=== PATIENT | female | born 2000 | race Hispanic/Latino ===

== ENCOUNTER 2021-03-14 19:38 | Day surgery (SDC) | payer OTHER ==
[2021-03-14 20:04] VITALS: BMI 35.1
[2021-03-14] MEDS ORDERED: hydrALAZINE 20 MG/ML VIAL SLOW IVP PRN (20:41)
[2021-03-14] MEDS ORDERED: Ondansetron PF 4 MG/2 ML Vial IVP PRN (20:47)
[2021-03-14] MEDS ORDERED: Ondansetron PF 4 MG/2 ML Vial ONE (20:56)
[2021-03-14] MEDS ORDERED: Lidocaine 2% Viscous Solution 10 ML, Aluminum & Magnesium Hydroxide 30 ML SSW SCH (21:00)
[2021-03-14] MEDS ORDERED: Lactated Ringer's 1,000 ML IV SCH (21:00)
[2021-03-14 21:23] LABS: #Basophils 0.1 10x3/uL (0.0-0.2); #Eosinphils 0.1 10x3/uL (0.0-0.5); #Monocytes 0.6 10x3/uL (0.0-1.1); #Neutrophils 6.7 10x3/uL (1.5-8.4); %Basophils 0.6 % (0.0-2.0); %Eosinophils 0.7 % (0.0-6.0); %Lymphocytes 13.9 % (18.0-47.0); %Monocytes 6.6 % (0.0-10.0); %Neutrophils 77.2 % (40.0-75.0); Hemoglobin 12.2 g/dL (12.0-15.5); Mean Corpuscular HGB CONC 34.3 g/dL (32.0-36.0); Mean Corpuscular Hemoglobin 29.5 pg (27.0-33.0); Mean Corpuscular Volume 86.2 fl (81.6-98.3); Mean Platelet Volume 9.9 fl (7.4-10.4); Platelet Count 284 10x3/uL (150-450); RBC Distribution Width 13.5 % (11.5-14.5); Red Blood Cell (RBC) Count 4.13 10x6/uL (3.90-5.03); White Blood Cell (WBC) Count 8.6 10x3/uL (3.5-10.5)
[2021-03-14 21:39] LABS: ALT (SGPT) 17 U/L (8-55); AST (SGOT) 23 U/L (5-30); Albumin 3.7 g/dL (3.5-5.0); Alkaline Phosphatase 72 U/L (40-100); Anion Gap 14 mmol/L (10-20); BUN (Urea Nitrogen) 4 mg/dL (8.4-21.0); Bilirubin, Total 0.5 mg/dL (0.2-1.2); Calc. Creatinine Clearance 205 mL/min (70-130); Calcium 9.5 mg/dL (7.8-10.44); Carbon Dioxide 21 mmol/L (22-29); Chloride 104 mmol/L (98-107); Globulin 3.2 g/dL (2.4-3.5); Glucose 79 mg/dL (70-105); Lipase 33 U/L (8-78); Potassium 3.6 mmol/L (3.5-5.1); Protein, Total 6.9 g/dL (6.0-8.3); Sodium 135 mmol/L (136-145)
== END 2021-03-14 23:39 | disposition home or self-care (01) ==
LOC: CSHLD/OP 19:38
PROVIDERS: ATTEND Obstetrics & Gynecology
DX: O21.2 Late vomiting of pregnancy (principal); O99.891 Other specified diseases and conditions complicating pregnancy; R19.7 Diarrhea, unspecified; R10.9 Unspecified abdominal pain; N85.8 Other specified noninflammatory disorders of uterus; Z3A.24 24 weeks gestation of pregnancy
CPT/HCPCS: 80053; 83690; 85025; 96360; 96361; 96375; 99283; J2405

== ENCOUNTER 2021-03-16 12:37 | Day surgery (SDC) | payer OTHER ==
[2021-03-16 13:25] VITALS: BMI 35.1
[2021-03-16] MEDS ORDERED: hydrALAZINE 20 MG/ML VIAL SLOW IVP PRN (13:46)
[2021-03-16] MEDS ORDERED: Sodium Chloride 0.9% 1,000 ML IV SCH (14:15)
[2021-03-16 14:28] LABS: #Eosinphils 0.1 10x3/uL (0.0-0.5); #Monocytes 0.5 10x3/uL (0.0-1.1); #Neutrophils 4.2 10x3/uL (1.5-8.4); %Basophils 0.5 % (0.0-2.0); %Eosinophils 1.2 % (0.0-6.0); %Lymphocytes 18.6 % (18.0-47.0); %Monocytes 7.9 % (0.0-10.0); Hemoglobin 12.1 g/dL (12.0-15.5); Mean Corpuscular HGB CONC 34.2 g/dL (32.0-36.0); Mean Corpuscular Hemoglobin 29.5 pg (27.0-33.0); Mean Corpuscular Volume 86.3 fl (81.6-98.3); Mean Platelet Volume 9.6 fl (7.4-10.4); Platelet Count 281 10x3/uL (150-450); RBC Distribution Width 13.6 % (11.5-14.5)
[2021-03-16] MEDS: Lactated Ringer's 1,000 ML IV SCH ×2 (14:28→15:45)
[2021-03-16 14:40] LABS: ALT (SGPT) 24 U/L (8-55); AST (SGOT) 27 U/L (5-30); Albumin 3.7 g/dL (3.5-5.0); Alkaline Phosphatase 73 U/L (40-100); Anion Gap 15 mmol/L (10-20); BUN (Urea Nitrogen) 5 mg/dL (8.4-21.0); Bilirubin, Total 0.3 mg/dL (0.2-1.2); Calc. Creatinine Clearance 188 mL/min (70-130); Calcium 9.3 mg/dL (7.8-10.44); Carbon Dioxide 20 mmol/L (22-29); Chloride 106 mmol/L (98-107); Globulin 3.2 g/dL (2.4-3.5); Glucose 101 mg/dL (70-105); Lipase 31 U/L (8-78); Potassium 3.8 mmol/L (3.5-5.1); Protein, Total 6.9 g/dL (6.0-8.3); Sodium 137 mmol/L (136-145)
[2021-03-16] MEDS ORDERED: Ondansetron PF 4 MG/2 ML Vial IVP PRN (15:34)
[2021-03-16 15:35] LABS: SARS-CoV-2 NAA Rapid Test Not Detected (NotDetected)
[2021-03-16] MEDS ORDERED: Ondansetron PF 4 MG/2 ML Vial ONE (15:41)
== END 2021-03-16 17:05 | disposition home health service (06) ==
LOC: CSHLD/OP 12:37
PROVIDERS: ATTEND Obstetrics & Gynecology
DX: O98.512 Other viral diseases complicating pregnancy, second trimester (principal); A08.4 Viral intestinal infection, unspecified; Z3A.24 24 weeks gestation of pregnancy
CPT/HCPCS: 80053; 83690; 85025; 96360; 96361; 96375; 99283; J2405; U0002

== ENCOUNTER 2021-06-27 08:38 | Outpatient (CLI) | payer OTHER ==
[2021-06-27 16:42] LABS: SARS-CoV-2 PCR by NAA Not Detected (NotDetected)
== END 2021-06-27 08:39 | disposition home or self-care (01) ==
LOC: CSHLAB 08:38
PROVIDERS: ATTEND Family Medicine
DX: Z20.822 Contact with and (suspected) exposure to COVID-19 (principal)
CPT/HCPCS: U0003; U0005